=== PATIENT | male | born 2000 | race Two or more races ===

== ENCOUNTER 2022-01-13 07:29 | Emergency (ER) | payer OTHER, MEDICAID ==
[~2022-01-13] VITALS: Ht 170.2 cm; Wt 68.0 kg
[2022-01-13 07:31] VITALS: BP 111/69
[2022-01-13] MEDS ORDERED: AZIT250T8 PO (08:04)
[2022-01-13] MEDS ORDERED: TOBR0.3S OP (08:04)
== END 2022-01-13 08:21 | disposition home or self-care (01) ==
LOC: ER 07:29
DX: J03.90 Acute tonsillitis, unspecified (principal); H10.31 Unspecified acute conjunctivitis, right eye